=== PATIENT | female | born 1945 | race Two or more races ===

== ENCOUNTER 2024-04-25 02:38 | Inpatient (IN) | payer OTHER ==
[~2024-04-25] VITALS: Ht 152.4 cm; Wt 59.4 kg
[2024-04-25 03:30] LABS: BASOPHILS % (AUTO) 0.3 % (0.0-2.0); EOSINOPHILS # (AUTO) 0.3 K/uL (0.0-0.7); EOSINOPHILS % (AUTO) 3.6 % (0.0-6.0); HEMATOCRIT 38 % (33-45); HEMOGLOBIN 12.6 g/dL (11.5-14.8); LYMPHOCYTES # (AUTO) 1.5 K/uL (0.8-4.8); LYMPHOCYTES % (AUTO) 17.5 % (20.0-44.0); MEAN CORPUSCULAR HEMOGLOBIN 30 PG (26.0-33.0); MEAN CORPUSCULAR HGB CONC 34 g/dl (31.0-36.0); MEAN CORPUSCULAR VOLUME 88 fL (82-100); MONOCYTES # (AUTO) 0.4 K/uL (0.1-1.30); MONOCYTES % (AUTO) 4.6 % (2.0-12.0); NEUTROPHILS # (AUTO) 6.3 K/uL (1.8-8.9); PLATELET COUNT (AUTO) 231 K/uL (150-450); RED BLOOD CELL COUNT(AUTO) 4.26 MIL/uL (4.0-5.2); RED CELL DISTRIBUTION WIDTH 14.7 % (11.5-15.0); WHITE BLOOD COUNT (AUTO) 8.5 K/uL (4.3-11.0)
[2024-04-25] MEDS ORDERED: ONDANSETRON HCL/PF 4 MG/2 ML VIAL ONE ×2 (03:52→05:41)
[2024-04-25] MEDS ORDERED: MORPHINE SULFATE INJ 2 MG/ML DISP.SYRIN ONE (03:52)
[2024-04-25 03:53] LABS: CREATININE 1.1 mg/dL (0.6-1.3); POTASSIUM 4.1 mmol/L (3.5-5.1)
[2024-04-25 04:06] LABS: ALBUMIN 2.9 g/dL (3.4-5.0); BILIRUBIN,TOTAL 0.3 mg/dL (0.2-1.0); TOTAL PROTEIN, SERUM 7.3 g/dL (6.4-8.2)
[2024-04-25] MEDS: ONDANSETRON HCL/PF - ER 4 MG/2 ML VIAL IV ONE ×2 (04:22→05:53)
[2024-04-25] MEDS: MORPHINE SULFATE INJ 2 MG/ML DISP.SYRIN IV ONE ×2 (04:22→05:53)
[2024-04-25] MEDS ORDERED: PIPERACI/TAZO 3.375GM/D5W 50ML PB IV ONE (05:41)
[2024-04-25] MEDS ORDERED: MORPHINE SULFATE INJ 4 MG/ML DISP.SYRIN ONE (05:41)
[2024-04-25] MEDS: PIPERACILLIN /TAZOBACTAM 3.375 G in IV D5W 50 ML IV ONE (05:53)
[2024-04-25] MEDS ORDERED: MAG HYDROX/AL HYDROX/SIMETH 30 ML UDC PO PRN (06:30)
[2024-04-25] MEDS ORDERED: ZOLPIDEM TARTRATE 5 MG TABLET PO PRN (06:30)
[2024-04-25] MEDS ORDERED: MAGNESIUM HYDROXIDE 30 ML UDC PO PRN (06:30)
[2024-04-25] MEDS ORDERED: ACETAMINOPHEN 325 MG TABLET PO PRN (06:30)
[2024-04-25] MEDS ORDERED: Z GUARD REMEDY 4 OZ OINT TP PRN (06:30)
[2024-04-25] MEDS ORDERED: ENOXAPARIN SODIUM 40 MG/0.4 ML DISP.SYRIN SQ ONE (06:47)
[2024-04-25] MEDS: ENOXAPARIN SODIUM 40 MG/0.4 ML DISP.SYRIN SQ SCH (06:53)
[2024-04-25] MEDS ORDERED: ATRO2DRO4 SL (07:58)
[2024-04-25] MEDS ORDERED: GABA300C PO (07:58)
[2024-04-25] MEDS ORDERED: ESCI20TA PO (07:58)
[2024-04-25] MEDS ORDERED: QUET50TA79 PO (07:58)
[2024-04-25] MEDS ORDERED: PRED20TA PO (07:58)
[2024-04-25] MEDS ORDERED: PROP10TA68 PO (07:58)
[2024-04-25] MEDS ORDERED: GEMTESA PO (07:58)
[2024-04-25] MEDS ORDERED: ENOXAPARIN SODIUM 40 MG/0.4 ML DISP.SYRIN SQ SCH (08:07)
[2024-04-25 09:45] LABS: APPEARANCE,URINE CLEAR (CLEAR); BILIRUBIN,URINE NEGATIVE (NEGATIVE); BLOOD, URINE NEGATIVE Ery/uL (NEGATIVE); COLOR,URINE YELLOW (YELLOW); KETONES,URINE NEGATIVE (NEGATIVE); LEUKOCYTE ESTERASE ,URINE NEGATIVE (NEGATIVE); NITRITE, URINE NEGATIVE (NEGATIVE); PROTEIN,URINE NEGATIVE (NEGATIVE); UGLUCOSE NEGATIVE (NEGATIVE); UROBILINOGEN,URINE 0.2 EU/dL (0.2)
[2024-04-25 10:00] VITALS: BP 144/64; TEMP 98.1; O2SAT 90
[2024-04-25] MEDS: IV D5/0.45 NACL 1,000 ML IV PRN (10:17)
[2024-04-25] MEDS: PANTOPRAZOLE 40 MG VIAL IV SCH (10:18)
[2024-04-25] MEDS: PIPERACILLIN /TAZOBACTAM 3.375 G in IV D5W 100 ML IV SCH ×2 (10:50→10:52)
[2024-04-25 12:00] VITALS: BP 129/72; TEMP 98.4; O2SAT 94
[2024-04-25 12:36] LABS: BASOPHILS % (AUTO) 0.2 % (0.0-2.0); HEMATOCRIT 40 % (33-45); HEMOGLOBIN 13.1 g/dL (11.5-14.8); LYMPHOCYTES # (AUTO) 0.6 K/uL (0.8-4.8); LYMPHOCYTES % (AUTO) 5.7 % (20.0-44.0); MEAN CORPUSCULAR HEMOGLOBIN 29 PG (26.0-33.0); MEAN CORPUSCULAR HGB CONC 33 g/dl (31.0-36.0); MEAN CORPUSCULAR VOLUME 87 fL (82-100); MONOCYTES # (AUTO) 0.4 K/uL (0.1-1.30); MONOCYTES % (AUTO) 3.9 % (2.0-12.0); NEUTROPHILS # (AUTO) 9.2 K/uL (1.8-8.9); NEUTROPHILS % (AUTO) 90.2 % (43.0-81.0); PLATELET COUNT (AUTO) 231 K/uL (150-450); RED BLOOD CELL COUNT(AUTO) 4.54 MIL/uL (4.0-5.2); RED CELL DISTRIBUTION WIDTH 14.6 % (11.5-15.0); WHITE BLOOD COUNT (AUTO) 10.2 K/uL (4.3-11.0)
[2024-04-25 12:42] LABS: CALCIUM, SERUM 9.7 mg/dL (8.5-10.1); CREATININE 1.2 mg/dL (0.6-1.3); MAGNESIUM 2.1 mg/dL (1.8-2.4); PHOSPHORUS 3.4 mg/dL (2.5-4.9); POTASSIUM 4.1 mmol/L (3.5-5.1)
[2024-04-25] MEDS ORDERED: DIATR MEGLU/DIATRIZOATE SODIUM 30 ML BOTTLE (GASTROGRAPHIN) ONE (13:07)
[2024-04-25] MEDS: MORPHINE SULFATE INJ 2 MG/ML DISP.SYRIN IV PRN (14:37)
[2024-04-25 16:00] VITALS: BP 117/64; TEMP 98.4; O2SAT 94
[2024-04-25 20:00] VITALS: BP 110/64; TEMP 98.4; O2SAT 94
[2024-04-25] MEDS: LORAZEPAM INJ 2 MG/ML VIAL IV PRN (23:45)
[2024-04-26] VITALS: BP 105/64; TEMP 99; O2SAT 95
[2024-04-26 04:00] VITALS: BP 126/68; TEMP 98.2; O2SAT 95
[2024-04-26 08:00] VITALS: BP 132/56; TEMP 97.9; O2SAT 95
[2024-04-26] MEDS: ENOXAPARIN SODIUM 40 MG/0.4 ML DISP.SYRIN SQ SCH (10:02)
[2024-04-26 12:00] VITALS: BP 132/56; TEMP 98; O2SAT 95
[2024-04-26 16:00] VITALS: BP 160/67; TEMP 98.5; O2SAT 96
[2024-04-26 20:54] VITALS: BP 135/55; TEMP 99.7; O2SAT 93
[2024-04-27 00:30] VITALS: BP 115/52; TEMP 98; O2SAT 96
[2024-04-27 06:24] VITALS: BP 126/64; TEMP 98.4; O2SAT 94
[2024-04-27 08:00] VITALS: BP 156/72; TEMP 98; O2SAT 94
[2024-04-27 10:35] LABS: BASOPHILS # (AUTO) 0.1 K/uL (0.0-0.2); BASOPHILS % (AUTO) 0.5 % (0.0-2.0); EOSINOPHILS # (AUTO) 0.1 K/uL (0.0-0.7); HEMATOCRIT 34 % (33-45); HEMOGLOBIN 11.5 g/dL (11.5-14.8); LYMPHOCYTES % (AUTO) 8.8 % (20.0-44.0); MEAN CORPUSCULAR HEMOGLOBIN 29 PG (26.0-33.0); MEAN CORPUSCULAR HGB CONC 33 g/dl (31.0-36.0); MEAN CORPUSCULAR VOLUME 88 fL (82-100); MONOCYTES # (AUTO) 0.8 K/uL (0.1-1.30); MONOCYTES % (AUTO) 6.6 % (2.0-12.0); NEUTROPHILS # (AUTO) 9.5 K/uL (1.8-8.9); NEUTROPHILS % (AUTO) 83.1 % (43.0-81.0); PLATELET COUNT (AUTO) 224 K/uL (150-450); RED BLOOD CELL COUNT(AUTO) 3.92 MIL/uL (4.0-5.2); RED CELL DISTRIBUTION WIDTH 14.2 % (11.5-15.0); WHITE BLOOD COUNT (AUTO) 11.5 K/uL (4.3-11.0)
[2024-04-27 10:47] LABS: ALBUMIN 1.8 g/dL (3.4-5.0); BILIRUBIN,TOTAL 0.4 mg/dL (0.2-1.0); PHOSPHORUS 2.1 mg/dL (2.5-4.9); POTASSIUM 3.5 mmol/L (3.5-5.1); TOTAL PROTEIN, SERUM 6.1 g/dL (6.4-8.2)
[2024-04-27 12:00] VITALS: BP 137/66; TEMP 97.7; O2SAT 95
[2024-04-27] MEDS ORDERED: DIATR MEGLU/DIATRIZOATE SODIUM 30 ML BOTTLE (GASTROGRAPHIN) ONE (12:38)
[2024-04-27 12:52] LABS: CREATININE, URINE 116.8 MG/DL (30.0-125.0)
[2024-04-27 16:00] VITALS: BP 143/66; TEMP 97.7; O2SAT 95
[2024-04-27] MEDS ORDERED: IOHEXOL-300 100 ML VIAL IV ONE (16:13)
[2024-04-27] MEDS ORDERED: CT SWABBABLE VALVE TRANS SET 1 EA INFUS.SET MC ONE (16:14)
[2024-04-27] MEDS ORDERED: IV NS 0.9% 250 ML IV ONE (16:14)
[2024-04-27] MEDS: Sodium Phosphate 15 MMOL in IV NS 0.9% 245 ML IV ONE (16:14)
[2024-04-27] MEDS: NEOM/POLY B SULF/HC OTIC SUSP 10 ML BOTTLE LEFT EAR SCH (19:51)
[2024-04-27 20:00] VITALS: BP 139/63; TEMP 98; O2SAT 95
[2024-04-27] MEDS ORDERED: EARACHE LEFTEYE SCH (21:00)
[2024-04-28] VITALS: BP 157/70; TEMP 98.9; O2SAT 93
[2024-04-28 04:00] VITALS: BP 150/69; TEMP 98.4; O2SAT 97
[2024-04-28 07:08] LABS: BASOPHILS % (AUTO) 0.4 % (0.0-2.0); EOSINOPHILS # (AUTO) 0.1 K/uL (0.0-0.7); EOSINOPHILS % (AUTO) 0.5 % (0.0-6.0); HEMATOCRIT 37 % (33-45); HEMOGLOBIN 12.3 g/dL (11.5-14.8); LYMPHOCYTES # (AUTO) 0.9 K/uL (0.8-4.8); MEAN CORPUSCULAR HEMOGLOBIN 30 PG (26.0-33.0); MEAN CORPUSCULAR HGB CONC 34 g/dl (31.0-36.0); MEAN CORPUSCULAR VOLUME 88 fL (82-100); MONOCYTES # (AUTO) 0.8 K/uL (0.1-1.30); MONOCYTES % (AUTO) 7.6 % (2.0-12.0); NEUTROPHILS # (AUTO) 9.2 K/uL (1.8-8.9); NEUTROPHILS % (AUTO) 83.5 % (43.0-81.0); PLATELET COUNT (AUTO) 240 K/uL (150-450); RED BLOOD CELL COUNT(AUTO) 4.14 MIL/uL (4.0-5.2); RED CELL DISTRIBUTION WIDTH 14.5 % (11.5-15.0)
[2024-04-28 07:38] LABS: ALANINE AMINOTRANSFERASE 16 U/L (12-78); ALBUMIN 1.7 g/dL (3.4-5.0); ALKALINE PHOSPHATASE 111 U/L (46-116); ASPARTATE AMINOTRANSFERASE 26 U/L (15-37); BILIRUBIN,TOTAL 0.5 mg/dL (0.2-1.0); CALCIUM, SERUM 9.3 mg/dL (8.5-10.1); CARBON DIOXIDE 26 mmol/L (21-32); CHLORIDE 102 mmol/L (98-107); CREATININE 1.1 mg/dL (0.6-1.3); GLUCOSE 124 mg/dL (74-106); PHOSPHORUS 2.2 mg/dL (2.5-4.9); SODIUM SERUM 136 mmol/L (136-145); TOTAL PROTEIN, SERUM 6.3 g/dL (6.4-8.2); UREA NITROGEN, BLOOD 9 mg/dL (7-18)
[2024-04-28 08:00] VITALS: BP 168/83; TEMP 98.2; O2SAT 95
[2024-04-28] MEDS ORDERED: POTASSIUM PHOSPHATE MM 15 MMOL in IV NS 0.9% 250 ML IV SCH (09:30)
[2024-04-28] MEDS: POTASSIUM PHOSPHATE MM 7.5 MMOL in IV NS 0.9% 100 ML IV SCH (10:12)
[2024-04-28] MEDS ORDERED: POTASSIUM CL. PREMIX PERIPHER. 50 ML IV SCH (10:30)
[2024-04-28 12:00] VITALS: BP 163/71; TEMP 97.9; O2SAT 94
[2024-04-28 13:11] LABS: INR 1.13 (0.91-1.10); PARTIAL THROMBOPLASTIN TIME 37.4 SEC (24.3-34.3); PROTHROMBIN TIME 11.9 SECS (9.2-11.1)
[2024-04-28] MEDS: POTASSIUM CL. PREMIX PERIPHER. 50 ML IV SCH (14:35)
[2024-04-28 16:00] VITALS: BP 132/96; TEMP 97.8; O2SAT 95
[2024-04-28 20:00] VITALS: BP 157/83; TEMP 97.3; TEMP 98; O2SAT 98; O2SAT 99
[2024-04-29] VITALS: BP 146/84; TEMP 98; O2SAT 99
[2024-04-29 04:00] VITALS: BP 121/70; TEMP 98; O2SAT 99
[2024-04-29 06:27] LABS: BASOPHILS # (AUTO) 0.1 K/uL (0.0-0.2); BASOPHILS % (AUTO) 0.5 % (0.0-2.0); EOSINOPHILS # (AUTO) 0.1 K/uL (0.0-0.7); EOSINOPHILS % (AUTO) 0.9 % (0.0-6.0); HEMATOCRIT 33 % (33-45); HEMOGLOBIN 11.2 g/dL (11.5-14.8); LYMPHOCYTES # (AUTO) 0.9 K/uL (0.8-4.8); LYMPHOCYTES % (AUTO) 7.5 % (20.0-44.0); MEAN CORPUSCULAR HEMOGLOBIN 29 PG (26.0-33.0); MEAN CORPUSCULAR HGB CONC 34 g/dl (31.0-36.0); MEAN CORPUSCULAR VOLUME 87 fL (82-100); MONOCYTES % (AUTO) 8.1 % (2.0-12.0); NEUTROPHILS # (AUTO) 10.2 K/uL (1.8-8.9); PLATELET COUNT (AUTO) 246 K/uL (150-450); RED BLOOD CELL COUNT(AUTO) 3.84 MIL/uL (4.0-5.2); RED CELL DISTRIBUTION WIDTH 14.3 % (11.5-15.0); WHITE BLOOD COUNT (AUTO) 12.3 K/uL (4.3-11.0)
[2024-04-29 06:51] LABS: ALBUMIN 1.5 g/dL (3.4-5.0); BILIRUBIN,TOTAL 0.6 mg/dL (0.2-1.0); CALCIUM, SERUM 9.1 mg/dL (8.5-10.1); CREATININE 0.9 mg/dL (0.6-1.3); MAGNESIUM 1.9 mg/dL (1.8-2.4); PHOSPHORUS 1.9 mg/dL (2.5-4.9); POTASSIUM 3.2 mmol/L (3.5-5.1); TOTAL PROTEIN, SERUM 6.1 g/dL (6.4-8.2)
[2024-04-29 08:00] VITALS: BP 121/71; TEMP 98.1; O2SAT 99
[2024-04-29] MEDS: hydrALAZINE HCL IV 20 MG VIAL IV PRN (08:43)
[2024-04-29] MEDS: POTASSIUM CL. PREMIX PERIPHER. 50 ML IV SCH (09:59)
[2024-04-29 12:00] VITALS: BP 157/62; TEMP 97.9; O2SAT 99
[2024-04-29] MEDS ORDERED: POTASSIUM PHOSPHATE MM 15 MMOL in IV NS 0.9% 250 ML IV SCH (12:00)
[2024-04-29] MEDS: POTASSIUM PHOSPHATE MM 7.5 MMOL in IV NS 0.9% 100 ML IV SCH (12:08)
[2024-04-29] MEDS ORDERED: MIDAZOLAM HCL 2 MG/2ML VIAL IV PRN (13:30)
[2024-04-29] MEDS ORDERED: FENTANYL PF 250MCG/5ML AMPUL IV PRN (13:30)
[2024-04-29] MEDS ORDERED: NALOXONE PREFILLED SYRINGE 2 MG/2 ML SYRINGE IV PRN (13:30)
[2024-04-29] MEDS ORDERED: FLUMAZENIL 0.5 MG VIAL IV PRN (13:30)
[2024-04-29] MEDS ORDERED: LIDOCAINE HCL/PF 1% 30 ML SDV ONE (14:06)
[2024-04-29 16:00] VITALS: BP 152/68; TEMP 97.3; O2SAT 99
[2024-04-29 20:00] VITALS: BP 150/71; TEMP 98.5; O2SAT 98
[2024-04-30] VITALS: BP 147/71; TEMP 97.9; O2SAT 97
[2024-04-30 04:00] VITALS: BP 141/63; TEMP 97.7; O2SAT 97
[2024-04-30 06:53] LABS: BASOPHILS % (AUTO) 0.2 % (0.0-2.0); EOSINOPHILS # (AUTO) 0.2 K/uL (0.0-0.7); EOSINOPHILS % (AUTO) 1.6 % (0.0-6.0); HEMATOCRIT 33 % (33-45); HEMOGLOBIN 11.2 g/dL (11.5-14.8); LYMPHOCYTES # (AUTO) 0.8 K/uL (0.8-4.8); LYMPHOCYTES % (AUTO) 7.1 % (20.0-44.0); MEAN CORPUSCULAR HEMOGLOBIN 30 PG (26.0-33.0); MEAN CORPUSCULAR HGB CONC 34 g/dl (31.0-36.0); MEAN CORPUSCULAR VOLUME 87 fL (82-100); MONOCYTES % (AUTO) 8.8 % (2.0-12.0); NEUTROPHILS % (AUTO) 82.3 % (43.0-81.0); PLATELET COUNT (AUTO) 259 K/uL (150-450); RED BLOOD CELL COUNT(AUTO) 3.81 MIL/uL (4.0-5.2); RED CELL DISTRIBUTION WIDTH 14.5 % (11.5-15.0); WHITE BLOOD COUNT (AUTO) 10.9 K/uL (4.3-11.0)
[2024-04-30 06:59] LABS: CALCIUM, SERUM 8.7 mg/dL (8.5-10.1); CREATININE 0.9 mg/dL (0.6-1.3); MAGNESIUM 1.8 mg/dL (1.8-2.4); PHOSPHORUS 2.7 mg/dL (2.5-4.9); POTASSIUM 3.2 mmol/L (3.5-5.1)
[2024-04-30 08:00] VITALS: BP 128/65; TEMP 97.6; O2SAT 98
[2024-04-30] MEDS ORDERED: POTASSIUM CHLORIDE 20 MEQ TAB.PRT.SR PO SCH (09:00)
[2024-04-30] MEDS: POTASSIUM CL. PREMIX PERIPHER. 50 ML IV SCH (10:06)
[2024-04-30 12:00] VITALS: BP 134/57; TEMP 98; O2SAT 97
[2024-04-30 16:00] VITALS: BP 139/61; TEMP 98.2; O2SAT 98
[2024-04-30] MEDS: ONDANSETRON HCL/PF 4 MG/2 ML VIAL IVP PRN (18:39)
== END 2024-04-30 19:01 | disposition short-term general hospital (02) | DRG 380 ==
LOC: ER 02:43 → TELE1 08:59
PROVIDERS: ADMIT Nurse Practitioner Acute Care; ATTEND Student in an Organized Health Care Education/Training Program
PROC: 05HB33Z Insertion of Infusion Device into Right Basilic Vein, Percutaneous Approach (ICD-10-PCS; principal; 2024-04-26)
PROC: B54MZZA Ultrasonography of Right Upper Extremity Veins, Guidance (ICD-10-PCS; 2024-04-26)
PROC: 0W9G30Z Drainage of Peritoneal Cavity with Drainage Device, Percutaneous Approach (ICD-10-PCS; 2024-04-29)
DX: K26.5 Chronic or unspecified duodenal ulcer with perforation (principal); E43 Unspecified severe protein-calorie malnutrition; I21.A1 Myocardial infarction type 2; K65.9 Peritonitis, unspecified; J90 Pleural effusion, not elsewhere classified; N17.9 Acute kidney failure, unspecified; R18.8 Other ascites; A09 Infectious gastroenteritis and colitis, unspecified; J98.11 Atelectasis; Z85.3 Personal history of malignant neoplasm of breast; K66.8 Other specified disorders of peritoneum; D64.9 Anemia, unspecified; E83.39 Other disorders of phosphorus metabolism; E86.0 Dehydration; E87.6 Hypokalemia; E88.09 Other disorders of plasma-protein metabolism, not elsewhere classified; G47.00 Insomnia, unspecified; I11.9 Hypertensive heart disease without heart failure; Z88.0 Allergy status to penicillin; Z88.2 Allergy status to sulfonamides; Z90.12 Acquired absence of left breast and nipple; Z98.82 Breast implant status; K82.8 Other specified diseases of gallbladder; N20.0 Calculus of kidney; K74.60 Unspecified cirrhosis of liver; R73.9 Hyperglycemia, unspecified; Z68.25 Body mass index [BMI] 25.0-25.9, adult; K59.00 Constipation, unspecified; I70.0 Atherosclerosis of aorta; K25.5 Chronic or unspecified gastric ulcer with perforation
CPT/HCPCS: 36410; 36415; 71045-TC; 75989-TC; 80048-TC; 80053-TC; 82570-TC; 83605-TC; 83690-TC; 83735-TC; 83880; 84100-TC; 84300-TC; 84484-TC; 85025-TC; 85610-TC; 85730-TC; 87338; A4223; A9563; C9113; G0378; J0360; J1650; J2060; J2270; J2405; J2543; J3480; J3490; J7030; J7050; J7060; Q9963; Q9967